=== PATIENT | male | born 1950 | race Caucasian/White ===

== ENCOUNTER → 2021-08-06 | Day surgery (SDC) | payer OTHER ==
[~2021-08-06] VITALS: Ht 177.8 cm; Wt 93.4 kg
[~2021-08-06] MED LIST: ASPIRIN EC81 MG PO; CARVEDILOL 1212.5 MG PO; COZAAR50 MG PO; CRESTOR40 MG PO; LOVAZA1 GM PO; MULTIVITAMIN1 EACH PO
--- NOTE | 2021-08-06 13:39 | NUR ---
[address] GOTTI. PATIENT ABDOMEN IS DISTENDED. NOT PASSING GAS AFTER LYING ON LEFT SIDE AND GETTING UP TO BATHROOM. BLOOD PRESSURE IS ELEVATED. ACUTE ABDOMINAL SERIES ORDERED.
--- NOTE | 2021-08-06 13:53 | NUR ---
1353. PATIENT UNABLE TO PASS GAS
--- NOTE | 2021-08-06 14:12 | NUR ---
UP TO BATHROOM
--- NOTE | 2021-08-06 14:15 | NUR ---
DR. GOTTI CALLED. ABDOMINAL SERIES IS CLEAR. PATIENT CAN BE DISCHARGED
== END | disposition home or self-care (01) ==
LOC: FAS 09:50
DX: Z12.11 Encounter for screening for malignant neoplasm of colon (principal); D12.0 Benign neoplasm of cecum; D12.3 Benign neoplasm of transverse colon; K57.30 Diverticulosis of large intestine without perforation or abscess without bleeding; E10.9 Type 1 diabetes mellitus without complications; I50.9 Heart failure, unspecified; Z80.0 Family history of malignant neoplasm of digestive organs; Z86.010 Personal history of colon polyps; Z79.82 Long term (current) use of aspirin; Z95.5 Presence of coronary angioplasty implant and graft; Z72.89 Other problems related to lifestyle; Z87.891 Personal history of nicotine dependence
CPT/HCPCS: 74022; J1610; J2704; J7120